=== PATIENT | female | born 1990 | race American Indian/Alaskan Native ===

== ENCOUNTER 2016-08-16 23:13 | Emergency (ER) | payer MEDICAID ==
--- NOTE | 2016-08-17 04:08 | Emergency Department Report ---
ED Laceration HPI - HPI Chief Complaint: Wound/Laceration Stated Complaint: LACERATION TO FINGER Time Seen by Provider: 08/17/16 03:38 Laceration Symptoms: No Foreign Body Sensation, No Numbness, No Weakness, No Pain Other History: 26-year-old female past medical history none presents with complaint of laceration to base of left thumb. Patient accidentally cut finger while cooking at home with a knife. Tetanus was updated last February. No visible laceration to base of left inner thumb at skin crease at the MCP joint. Minimal bleeding. ED Review of Systems ROS: Stated complaint: LACERATION TO FINGER Other details as noted in HPI Constitutional: denies: chills, fever Eyes: denies: eye pain, eye discharge, vision change ENT: denies: ear pain, throat pain Respiratory: denies: cough, shortness of breath, wheezing Cardiovascular: denies: chest pain, palpitations Endocrine: no symptoms reported Gastrointestinal: denies: abdominal pain, nausea, diarrhea Genitourinary: denies: urgency, dysuria, discharge Musculoskeletal: denies: back pain, joint swelling, arthralgia Skin: denies: rash, lesions Neurological: denies: headache, weakness, paresthesias Psychiatric: denies: anxiety, depression Hematological/Lymphatic: denies: easy bleeding, easy bruising ED Past Medical Hx - Past Medical History Previous Medical History?: No - Surgical History Past Surgical History?: No - Social History Smoking Status: Never Smoker Substance Use Type: None - Medications Home Medications: Home Medications Medication Instructions Recorded Confirmed Last Taken Type Cephalexin [Keflex] 500 mg PO Q12HR #6 cap 08/17/16 Unknown Rx Ibuprofen [Motrin] 600 mg PO Q8H PRN #30 tablet 08/17/16 Unknown Rx Neomycn/Baci Zn/Pmyx Bs/Pramox 28 gm TP BID #1 oint...g. 08/17/16 Unknown Rx [Triple Antibioti-Pain Rlf Oint] Laceration Physical Exam - Exam General: Vital signs noted. No distress. Alert and acting appropriately. Wound Length (cm): 2 Laceration Location: Upper Extremity (left) Full Body Front + Back: 1 - Small laceration inner crease of the left thumb Laceration Exam: Yes Normal Distal CMS, No Foreign Body, No Exposed Tendon, Vessel, or Nerve, No Tendon Injury ED Course Vital Signs 08/16/16 23:24 Temperature 98.2 F Pulse Rate 87 Respiratory 16 Rate Blood Pressure 136/88 Blood Pressure 136/88 [Left] O2 Sat by Pulse 100 Oximetry - Laceration /Wound Repair Left Medial Finger Wound Location: upper extremity Wound Length (cm): 2 Wound's Depth, Shape: linear Irrigated w/ Saline (ccs): 1,000 Betadine Prep?: Yes Anesthesia: Lidocaine w/ Epi Volume Anesthetic (ccs): 4 Wound Debrided: minimal Wound Repaired With: sutures Suture Size/Type: 4:0, nylon Number of Sutures: 4 Layer Closure?: No Sterile Dressing Applied?: Yes (triple abx w/ gauze) ED Medical Decision Making - Medical Decision Making A/P: Simple laceration 1-thumb range of motion flexion extension abduction and abduction thumb to all fingers range of motion MCP and DIP fully intact capillary refill less than 1 second distal sensation thumb and finger tip intact no other injury sustained. 2-good approximation of skin achieved sutures 3-triple antibiotic ointment, Motrin when necessary, three-day course Keflex 4-sutures to be removed in 7-10 days Critical care attestation.: If time is entered above; I have spent that time in minutes in the direct care of this critically ill patient, excluding procedure time. ED Disposition Clinical Impression: Laceration of left thumb Qualifiers: Encounter type: initial encounter Qualified Code(s): S61.012A - Laceration without foreign body of left thumb without damage to nail, initial encounter Disposition: DISCHARGED TO HOME OR SELFCARE Is pt being admited?: No Does the pt Need Aspirin: No Condition: Stable Instructions: Suture Care (ED), Laceration (ED) Additional Instructions: Sutures be removed in 7-10 days Prescriptions: Cephalexin [Keflex] 500 mg PO Q12HR #6 cap Ibuprofen [Motrin] 600 mg PO Q8H PRN #30 tablet PRN Reason: Pain Neomycn/Baci Zn/Pmyx Bs/Pramox [Triple Antibioti-Pain Rlf Oint] 28 gm TP BID #1 oint...g. Referrals: [facility] [Outside] - 3-5 Days Forms: Accompanied Note, Work/School Release Form(ED) Time of Disposition: 04:15
[2016-08-17 04:34] VITALS: BP 124/90
== END 2016-08-17 04:34 | disposition home or self-care (01) ==
LOC: ED 23:13
DX: S61.012A Laceration without foreign body of left thumb without damage to nail, initial encounter (principal); W26.0XXA Contact with knife, initial encounter; Y93.G9 Activity, other involving cooking and grilling; Y99.8 Other external cause status; Y92.090 Kitchen in other non-institutional residence as the place of occurrence of the external cause

== ENCOUNTER 2016-10-26 10:36 | Emergency (ER) | payer MEDICAID ==
[2016-10-26 11:42] LABS: Bilirubin,Urine NEG (Negative); Blood,Urine LG (Negative); Ketones,Urine NEG (Negative); Leukocyte Esterase,Urine NEG (Negative); Mucus,Urine FEW /HPF; Nitrite,Urine NEG (Negative); Protein,Urine <15 mg/dL mg/dL (Negative); Urobilinogen,Urine < 2.0 mg/dL (<2.0)
--- NOTE | 2016-10-26 16:42 | Emergency Department Report ---
HPI - General Chief Complaint: Vaginal Bleeding Time Seen by Provider: 10/26/16 16:18 - HPI HPI: This is a 26-year-old Afro-[place] female presents to the emergency department from home with complaint of a 2 week history of heavy vaginal bleeding. The patient said she has not had a menstrual cycle since last November, almost 1 year ago. 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 It only stops when she is sitting or laying down resting. She has some mild lower abdominal cramping with it. She is not taken anything for symptoms prior to presentation. She is not on any daily medications including control. She does not have a [facility] or primary care physician. No recent travel or sick contacts at home. ED Past Medical Hx - Past Medical History Previous Medical History?: No - Surgical History Past Surgical History?: Yes Additional Surgical History: - Social History Smoking Status: Never Smoker Substance Use Type: None - Medications Home Medications: Home Medications Medication Instructions Recorded Confirmed Last Taken Type Cephalexin [Keflex] 500 mg PO Q12HR #6 cap 08/17/16 Unknown Rx Ibuprofen [Motrin] 600 mg PO Q8H PRN #30 tablet 08/17/16 Unknown Rx Neomycn/Baci Zn/Pmyx Bs/Pramox 28 gm TP BID #1 oint...g. 08/17/16 Unknown Rx [Triple Antibioti-Pain Rlf Oint] ED Review of Systems ROS: Stated complaint: VAG PAIN/MAJOR BLEEDING Other details as noted in HPI Comment: All other systems reviewed and negative Constitutional: denies: chills, fever Eyes: denies: eye pain, eye discharge, vision change ENT: denies: ear pain, throat pain Respiratory: denies: cough, shortness of breath, wheezing Cardiovascular: denies: chest pain, palpitations Gastrointestinal: abdominal pain. denies: nausea, vomiting Genitourinary: other (vaginal bleeding). denies: urgency, dysuria, discharge Musculoskeletal: denies: back pain, joint swelling, arthralgia Skin: denies: rash, lesions Neurological: denies: headache, weakness, paresthesias Physical Exam - Physical Exam Vital Signs: Vital Signs 10/26/16 10/26/16 10:41 15:38 Temperature 97.8 F Pulse Rate 74 77 Respiratory 16 16 Rate Blood Pressure 125/84 Blood Pressure 120/87 [Left] O2 Sat by Pulse 99 99 Oximetry Physical Exam: GENERAL: The patient is well-developed well-nourished. HEENT: Normocephalic. Atraumatic. Extraocular motions are intact. Patient has moist mucous membranes. Pupils equal reactive to light bilaterally. NECK: Supple. Trachea is midline. CHEST/LUNGS: Clear to auscultation. There is no respiratory distress noted. HEART/CARDIOVASCULAR: Regular. There is no tachycardia. There is no gallop rub or murmur. ABDOMEN: Abdomen is soft. Mild lower abdominal tenderness to palpation. No guarding or rebound tenderness. Patient has normal bowel sounds. There is no abdominal distention. SKIN: Skin is warm and dry. NEURO: The patient is awake, alert, and oriented. The patient is cooperative. The patient has no focal neurologic deficits. The patient has normal speech. MUSCULOSKELETAL: There is no tenderness or deformity. There is no limitation range of motion. There is no evidence of acute injury. ED Course Vital Signs 10/26/16 10/26/16 10:41 15:38 Temperature 97.8 F Pulse Rate 74 77 Respiratory 16 16 Rate Blood Pressure 125/84 Blood Pressure 120/87 [Left] O2 Sat by Pulse 99 99 Oximetry ED Medical Decision Making - Lab Data Result diagrams: 10/26/16 17:06 10/26/16 16:55 - Radiology Data Radiology results: report reviewed Transvaginal/pelvic ultrasound is a normal examination without any acute process seen. - Medical Decision Making Referral female presents with a 2-3 week history of vaginal bleeding after going almost one year without a normal menstrual cycle or any menstrual cycle at all. She has some mild lower abdominal and/or pelvic discomfort. She does not have a toxic or rigid abdomen. Patient's labs are unremarkable including a normal hemoglobin level. She has normal belly labs including bilirubin, lipase and LFTs. There is no significant urinary tract infection and the patient is not . There is hematuria the patient is having vaginal bleeding. A transvaginal/pelvic ultrasound was done that is a normal examination without any etiology of the patient's symptoms or any acute process. Vital signs stable including being afebrile. The patient appears safe for discharge home at this time. She was given referrals for [facility]. She will return to the ER with any worsening of her symptoms or any acute distress. - Differential Diagnosis dysfunctional uterine bleeding, menorrhagia, , fibroids Critical Care Time: No Critical care attestation.: If time is entered above; I have spent that time in minutes in the direct care of this critically ill patient, excluding procedure time. ED Disposition Clinical Impression: Dysfunctional uterine bleeding Menorrhagia Qualifiers: Menorrahagia type: with irregular cycle Qualified Code(s): N92.1 - Excessive and frequent menstruation with irregular cycle Disposition: DC- TO HOME OR SELFCARE Is pt being admited?: No Condition: Stable Instructions: Dysfunctional Uterine Bleeding (ED), Menorrhagia (ED) Additional Instructions: Please follow-up with [facility] in the next few days. Return to the emergency department with any worsening of your symptoms or any acute distress. Referrals: [facility] [Provider Group] - 3-5 Days [facility] [Provider Group] - 3-5 Days [facility] [Provider Group] - 3-5 Days Time of Disposition: 19:33
[2016-10-26 17:29] LABS: Basophils % (Auto) 0.4 % (0.0-1.8); Eosinophils % (Auto) 2.2 % (0.0-4.3); Hematocrit 41.7 % (30.3-42.9); Mean Corpuscular HGB Conc 33 % (30-34); Mean Corpuscular Hemoglobin 28 pg (28-32); Mean Corpuscular Volume 84 fl (79-97); Platelet Count 244 K/mm3 (140-440); Red Blood Count 4.98 M/mm3 (3.65-5.03); Red Cell Distribution Width 13.9 % (13.2-15.2); White Blood Count 7.4 K/mm3 (4.5-11.0)
[2016-10-26 17:39] LABS: Anion Gap 16 mmol/L; BUN/Creatinine Ratio 18.33; Blood Urea Nitrogen 11 mg/dL (7-17); Calcium 9.1 mg/dL (8.4-10.2); Carbon Dioxide 28 mmol/L (22-30); Chloride 100.1 mmol/L (98-107); Glucose 59 mg/dL (65-100); Potassium 3.8 mmol/L (3.6-5.0); Sodium 140 mmol/L (137-145)
--- NOTE | 2016-10-26 19:13 | Ultrasound Report ---
FINAL REPORT EXAM: US TRANSVAGINAL HISTORY: pelvic pain, heavy bleeding TECHNIQUE: Real-time sonography was performed of the pelvis endovaginally. Images are submitted for interpretation. PRIORS: None. FINDINGS: The uterus appears normal measuring 7.6 x 3.7 x 4.6 cm. The endometrial stripe appears normal measuring 3 mm. The right ovary appears normal measuring 2.9 x 2.1 x 2.1 cm. The left ovary appears normal measuring 2.6 x 2.5 x 1.8 cm. There are normal appearing follicles in both ovaries. Color duplex evaluation of the ovaries shows flow bilaterally. There is no free pelvic fluid. IMPRESSION: Normal pelvic ultrasound.
--- NOTE | 2016-10-26 19:13 | Ultrasound Report ---
FINAL REPORT EXAM: US PELVIS DUPLEX DOPPLER COMP HISTORY: pelvic pain, heavy bleeding TECHNIQUE: Real-time sonography was performed of the pelvis transabdominally. Images are submitted for interpretation. PRIORS: None. FINDINGS: The uterus appears normal measuring 7.6 x 3.7 x 4.6 cm. The endometrial stripe appears normal measuring 3 mm. The right ovary appears normal measuring 2.9 x 2.1 x 2.1 cm. The left ovary appears normal measuring 2.6 x 2.5 x 1.8 cm. There are normal appearing follicles in both ovaries. Color duplex evaluation of the ovaries shows flow bilaterally. There is no free pelvic fluid. IMPRESSION: Normal pelvic ultrasound.
[2016-10-26 20:01] VITALS: BP 121/61
== END 2016-10-26 19:45 | disposition home or self-care (01) ==
LOC: ED 10:36
DX: N93.8 Other specified abnormal uterine and vaginal bleeding (principal); N92.1 Excessive and frequent menstruation with irregular cycle
CPT/HCPCS: 36415; 76830; 80048; 81001; 84702; 85025; 86850; 86900; 86901; 93975

== ENCOUNTER 2018-01-14 09:09 | Emergency (ER) | payer MEDICAID ==
[2018-01-14 11:13] LABS: Bacteria,Urine 1+ /HPF (Negative); Mucus,Urine FEW /HPF
[2018-01-14 11:43] LABS: Bilirubin,Urine NEG (Negative); Blood,Urine MOD (Negative); Color,Urine Yellow (Yellow); Urobilinogen,Urine < 2.0 mg/dL (<2.0)
--- NOTE | 2018-01-14 12:54 | Emergency Department Report ---
ED Female HPI - General Chief complaint: Abdominal Pain Stated complaint: BACK/ABD PAIN/VOMITING Time Seen by Provider: 01/14/18 12:34 Source: patient Mode of arrival: Ambulatory Limitations: No Limitations - History of Present Illness Initial comments: Patient is a 27-year-old F Female who is complaining of some mild left flank pain that is intermittently occurring for the last 3 days. Patient's sensation is a sharp pain in her left back. Patient still denies any dysuria but does have urinary frequency and has only a small amount of urine comes out when she tries to go. The patient denies any nausea vomiting diarrhea fever at this time. Patient says the pain in the left flank when it occurs is 8 out of 10 however it is not present at this time. - Related Data Previous Rx's Medication Instructions Recorded Last Taken Type Ibuprofen [Motrin] 600 mg PO Q8H PRN #30 tablet 08/17/16 Unknown Rx Neomycn/Bacitrc/Polymyx/Pramox 28 gm TP BID #1 oint...g. 08/17/16 Unknown Rx [Triple Antibioti-Pain Rlf Oint] cephALEXin [Keflex] 500 mg PO Q12HR #6 cap 08/17/16 Unknown Rx Ciprofloxacin HCl [Cipro] 500 mg PO BID #14 tablet 01/14/18 Unknown Rx Phenazopyridine [Pyridium] 100 mg PO TID 2 Days tab 01/14/18 Unknown Rx Allergies Allergy/AdvReac Type Severity Reaction Status Date / Time No Known Allergies Allergy Unverified 08/16/16 23:30 ED Review of Systems ROS: Stated complaint: BACK/ABD PAIN/VOMITING Other details as noted in HPI Comment: All other systems reviewed and negative ED Past Medical Hx - Past Medical History Previous Medical History?: No - Surgical History Past Surgical History?: Yes Additional Surgical History: - Social History Smoking Status: Never Smoker Substance Use Type: None - Medications Home Medications: Home Medications Medication Instructions Recorded Confirmed Last Taken Type Ibuprofen [Motrin] 600 mg PO Q8H PRN #30 tablet 08/17/16 Unknown Rx Neomycn/Bacitrc/Polymyx/Pramox 28 gm TP BID #1 oint...g. 08/17/16 Unknown Rx [Triple Antibioti-Pain Rlf Oint] cephALEXin [Keflex] 500 mg PO Q12HR #6 cap 08/17/16 Unknown Rx Ciprofloxacin HCl [Cipro] 500 mg PO BID #14 tablet 01/14/18 Unknown Rx Phenazopyridine [Pyridium] 100 mg PO TID 2 Days tab 01/14/18 Unknown Rx ED Physical Exam - General Limitations: No Limitations General appearance: alert, in no apparent distress - Head Head exam: Present: atraumatic, normocephalic - Eye Eye exam: Present: normal appearance - ENT ENT exam: Present: mucous membranes moist - Neck Neck exam: Present: normal inspection - Respiratory Respiratory exam: Present: normal lung sounds bilaterally. Absent: respiratory distress, wheezes, rales, rhonchi - Cardiovascular Cardiovascular Exam: Present: regular rate, normal rhythm. Absent: systolic murmur, diastolic murmur, rubs, gallop - GI/Abdominal GI/Abdominal exam: Present: soft, normal bowel sounds. Absent: distended, tenderness, guarding, rebound - Extremities Exam Extremities exam: Present: normal inspection - Back Exam Back exam: Present: normal inspection - Neurological Exam Neurological exam: Present: alert, oriented X3 - Psychiatric Psychiatric exam: Present: normal affect, normal mood - Skin Skin exam: Present: warm, dry, intact, normal color. Absent: rash ED Course Vital Signs 01/14/18 10:24 Temperature 97.8 F Pulse Rate 72 Respiratory 18 Rate Blood Pressure 131/75 O2 Sat by Pulse 98 Oximetry ED Medical Decision Making - Lab Data Labs 01/14/18 10:43 Urine Color Yellow Urine Turbidity Slightly-cloudy Urine pH 6.0 Ur Specific D Lo 1.023 Urine Protein 30 mg/dl Urine Glucose (UA) Neg Urine Ketones Neg Urine Blood Mod Urine Nitrite Neg Ur Reducing Substances Not Reportable Urine Bilirubin Neg Urine Ictotest Not Reportable Urine Urobilinogen < 2.0 Ur Leukocyte Esterase Mod Urine WBC (Auto) 82.0 H Urine RBC (Auto) 74.0 U Epithel Cells (Auto) 6.0 Urine Bacteria (Auto) 1+ Urine Mucus Few - Medical Decision Making Patient be started on antibiotics for a moderate UTI and will be discharged home Critical care attestation.: If time is entered above; I have spent that time in minutes in the direct care of this critically ill patient, excluding procedure time. ED Disposition Clinical Impression: Acute cystitis Disposition: DC-01 TO HOME OR SELFCARE Is pt being admited?: No Does the pt Need Aspirin: No Condition: Stable Instructions: Urinary Tract Infection in Women (ED) Referrals: IKNJAL HANSEN MD [Primary Care Provider] - 3-5 Days Time of Disposition: 12:54
[2018-01-14 13:01] VITALS: BP 130/70
== END 2018-01-14 12:59 | disposition home or self-care (01) ==
LOC: ED 09:09
DX: N30.00 Acute cystitis without hematuria (principal)
CPT/HCPCS: 81001; 99283